=== PATIENT | male | born 1940 | race Caucasian/White ===

== ENCOUNTER 2020-07-22 16:26 | Emergency (ER) | payer MEDICARE ==
[~2020-07-22] VITALS: Ht 167.6 cm; Wt 68.5 kg
[2020-07-22] MEDS ORDERED: MEMA10TA PO (16:52)
[2020-07-22] MEDS ORDERED: DIVA125T2 PO (16:52)
[2020-07-22] MEDS ORDERED: ESCI10TA PO (16:52)
[2020-07-22] MEDS ORDERED: TAMS-3 PO (16:52)
[2020-07-22] MEDS ORDERED: BUPR150T5 PO (16:52)
[2020-07-22] MEDS ORDERED: DEXA4TAB PO (16:52)
[2020-07-22 17:18] LABS: BASOPHILS % (AUTO) 0.2 % (0.0-2.0); EOSINOPHILS # (AUTO) 0.3 K/uL (0.0-0.7); EOSINOPHILS % (AUTO) 2.4 % (0.0-7.0); HEMATOCRIT 41.6 % (36.7-47.1); HEMOGLOBIN 13.7 g/dL (12.5-16.3); LYMPHOCYTES # (AUTO) 1.7 K/uL (20.0-40.0); LYMPHOCYTES % (AUTO) 16.7 % (20.5-51.5); MEAN CORPUSCULAR HEMOGLOBIN 28.8 uug (23.8-33.4); MEAN CORPUSCULAR HGB CONC 33 g/dL (32.5-36.3); MEAN CORPUSCULAR VOLUME 87.9 fL (73.0-96.2); MONOCYTES # (AUTO) 0.9 K/uL (2.0-10.0); MONOCYTES % (AUTO) 8.1 % (0.0-11.0); NEUTROPHILS # (AUTO) 7.6 K/uL (1.8-8.9); NEUTROPHILS % (AUTO) 72.6 % (38.5-71.5); PLATELET COUNT (AUTO) 191 K/uL (152-348); RED BLOOD CELL COUNT(AUTO) 4.74 MIL/uL (4.06-5.63); WHITE BLOOD COUNT (AUTO) 10.5 K/uL (3.6-10.2)
[2020-07-22 17:23] LABS: CREATININE 1.1 mg/dL (0.6-1.3); POTASSIUM 4.1 mmol/L (3.5-5.1)
--- NOTE | 2020-07-22 17:27 | NUR ---
Pt BONNY SIERRA RA[facility] from SNF. SNF reports pt was found on the floor on his right side w/a broken table next to him, assumed he fell -- unwitnessed -- had c/o bilateral hip pain, back pain and CAPONE. Here Pt c/o CAPONE, denies CP, SOB, dizziness, n/v, no other complaints, no distress noted.
[2020-07-22 17:29] LABS: BILIRUBIN,DIRECT 0.1 mg/dL (0.0-0.2); BILIRUBIN,TOTAL 0.4 mg/dL (0.2-1.0); TOTAL PROTEIN, SERUM 6.7 g/dL (6.4-8.2)
--- NOTE | 2020-07-22 18:59 | NUR ---
called report to YULIANA Moore at [facility]. Will arrange transportation for pt back to facility
--- NOTE | 2020-07-22 19:07 | NUR ---
Called Jason/Bhavna for transport back to facility: ETA 2100 Trip #[id number]
--- NOTE | 2020-07-22 20:00 | NUR ---
Patient is resting in bed, no distress noted at this time.
--- NOTE | 2020-07-22 22:10 | NUR ---
[facility] ARRIVE TO PROFESSOR OF COMMUNICATION PATIENT. PAPERWORK AND REPORT GIVEN TO ALLY PEREZ.
[2020-07-22 22:22] VITALS: BP 118/76
== END 2020-07-22 22:22 ==
LOC: ER 16:26
DX: S20.211A Contusion of right front wall of thorax, initial encounter (principal); W01.0XXA Fall on same level from slipping, tripping and stumbling without subsequent striking against object, initial encounter; Y92.099 Unspecified place in other non-institutional residence as the place of occurrence of the external cause; F03.90 Unspecified dementia, unspecified severity, without behavioral disturbance, psychotic disturbance, mood disturbance, and anxiety; N40.0 Benign prostatic hyperplasia without lower urinary tract symptoms; Z79.899 Other long term (current) drug therapy; I44.4 Left anterior fascicular block; M25.78 Osteophyte, vertebrae; M47.812 Spondylosis without myelopathy or radiculopathy, cervical region
CPT/HCPCS: 36415; 70030-TC; 70450; 71045; 72125; 85025; 85730; 93005; A4663

== ENCOUNTER 2020-10-16 16:51 | Emergency (ER) | payer BC, MEDICARE ==
[~2020-10-16] VITALS: Ht 170.2 cm; Wt 71.7 kg
[~2020-10-16 16:51] MED LIST: BUPR150T5 PO; DEXA4TAB PO; DIVA125T2 PO; ESCI10TA PO; MEMA10TA PO; TAMS-3 PO
[2020-10-16] MEDS ORDERED: NEOMY/BACITRA/POLYMYXIN B OINT UD PACKET TP ONE ×2 (17:00→17:05)
--- NOTE | 2020-10-16 18:08 | NUR ---
CALLED [facility] TO TAKE THE PT BACK TO [facility], ETA [phone]
--- NOTE | 2020-10-16 19:12 | NUR ---
Patient discharged to home in stable condition. Written and verbal after care instructions given. Patient verbalizes understanding of instructions. Stressed follow up or return to ER for worsening S/S. AM [facility] AT BEDSIDE TO TAKE THE PT BACK TO [facility]. PT [employer] AT BEDSIDE. PT SAYS FEELS GOOD, DENEIS ANY PAIN OR ANY OTHER DISTRESS.
[2020-10-16 19:13] VITALS: BP 134/78
== END 2020-10-16 19:15 ==
LOC: ER 16:51
DX: S00.81XA Abrasion of other part of head, initial encounter (principal); W01.0XXA Fall on same level from slipping, tripping and stumbling without subsequent striking against object, initial encounter; Y92.099 Unspecified place in other non-institutional residence as the place of occurrence of the external cause; F03.90 Unspecified dementia, unspecified severity, without behavioral disturbance, psychotic disturbance, mood disturbance, and anxiety; N40.0 Benign prostatic hyperplasia without lower urinary tract symptoms; Z79.899 Other long term (current) drug therapy; R93.0 Abnormal findings on diagnostic imaging of skull and head, not elsewhere classified; M50.01 Cervical disc disorder with myelopathy, high cervical region
CPT/HCPCS: 70450; 72125; A4663